=== PATIENT | female | born 1965 | race Caucasian/White ===

== ENCOUNTER 2020-03-07 05:20 | Day surgery (SDC) ==
--- NOTE | 2020-03-07 05:56 | EKG Report ---
Test Performed on : 03/07/2020 05:44:58 AM Test Reason : preop Blood Pressure : / mmHG Vent. Rate : 077 BPM Atrial Rate : 077 BPM P-R Int : 142 ms QRS Dur : 082 ms QT Int : 394 ms P-R-T Axes : 038 022 033 degrees QTc Int : 445 ms Normal sinus rhythm. Possible Left atrial enlargement Borderline ECG No previous ECGs available Confirmed by Tello AKHTAR, Magdiel Ruiz ([id number]) on 03/07/2020 4:48:21 PM
[2020-03-07] MEDS ORDERED: MARCAINE 0.25% PF/EPI 1:200,000 ONE (05:57)
[2020-03-07] MEDS ORDERED: VALIUM ONE (05:59)
[2020-03-07] MEDS ORDERED: KEFZOL 1 GM/D5W 1 GM/50 ML IVPB ONE (05:59)
[2020-03-07] MEDS ORDERED: LR 1,000 ML ONE (05:59)
[2020-03-07 06:08] LABS: HEMATOCRIT 35.9 % (37.0-47.0); HEMOGLOBIN 12.2 g/dL (12.0-16.0); MCH 28.2 PG (27-31); MCV 83.1 FL (81-99); MPV 11.2 FL (7.4-10.4); RBC 4.32 XMIL (4.2-5.4); RDW 13.6 % (11.5-14.5); WBC 6.56 X1000 (4.8-10.8)
[2020-03-07] MEDS ORDERED: VERSED ONE (06:30)
[2020-03-07] MEDS ORDERED: DIPRIVAN 1% ONE (06:30)
[2020-03-07] MEDS ORDERED: QUELICIN (DOSE) ONE (06:30)
[2020-03-07] MEDS ORDERED: ZEMURON ONE (06:30)
[2020-03-07] MEDS ORDERED: XYLOCAINE-MPF 2% ONE (06:30)
[2020-03-07 06:40] LABS: AGAP 15; BUN 17 mg/dL (8-22); CALCIUM 8.7 mg/dL (8.8-10.2); CHLORIDE 106 mmol/L (98-107); COSMO 284; CREATININE 0.6 mg/dL (0.5-0.9); ESTIMATED GFR > 60; GLUCOSE 121 mg/dL (70-104); POTASSIUM 3.3 mmol/L (3.5-5.1); SODIUM 141 mmol/L (136-145); TCO2 20 mmol/L (25-35)
[2020-03-07] MEDS ORDERED: ZOFRAN ONE (07:20)
[2020-03-07] MEDS ORDERED: DECADRON ONE (07:20)
[2020-03-07] MEDS ORDERED: ROBINUL ONE (08:04)
[2020-03-07] MEDS ORDERED: NEOSTIGMINE ONE (08:04)
[2020-03-07] MEDS ORDERED: EPHEDRINE ONE (08:08)
--- NOTE | 2020-03-07 08:55 | OPERATIVE NOTE ---
PROCEDURE DATE: 03/07/2020 PROCEDURE PERFORMED: Total thyroidectomy. SURGEON: Steve Guerra M.D. FUEL OIL CLERK: Dr. Hawthorne, who assisted in the exposure, dissection, removal, and closure of the procedure. PREOPERATIVE DIAGNOSIS: Graves' disease that is untreated. POSTOPERATIVE DIAGNOSIS: Graves' disease that is untreated. INDICATION: This is a 54-year-old with Graves' disease. She is unable to take any thyroid medication. She was turned down for radioactive iodine therapy, so we are doing a total thyroidectomy to control her disease, and doing it urgently since we cannot control her otherwise, except beta blockade. DESCRIPTION OF PROCEDURE: Satisfactory general endotracheal anesthesia was achieved. The patient was placed in a gentle reverse Trendelenburg position. The neck was gently extended, prepped, and draped in a sterile fashion. We marked the lowest skin line, 5 cm on each side of the midline, a fingerbreadth above the clavicle. We marked the skin, and anesthetized it with 0.25 Marcaine with epinephrine. We then incised the skin, and carried our incision through the platysma. We raised a subplatysmal plane superiorly to the thyroid prominence and inferior to the sternal notch. Gelpi retractors were placed. We divided the cervical fascia in the midline, dissected down to the isthmus of the thyroid. We dissected the right side first. Placed our Army-Rumsey retractors, and then isolated the superior pole, clamped, used the LigaSure to divide the vessels. We then left the Marixa clamp on the superior poles to retract it medially. We then identified the trachea inferiorly, rolled the gland anteriorly and medially, and then dissected close to the gland as we went from anterior to lateral to posterior. We identified the recurrent nerve and protected it. We felt that the superior parathyroid was identified and protected. The inferior parathyroid was not identified for certain. We stayed very close to the gland as we dissected, until we rolled the gland off the trachea. We then did a similar procedure on the left side. Again, the recurrent nerve was identified and protected. The parathyroids were not definitely identified, but we stayed so close to the gland that we felt that they were protected. We then finally amputated the gland. Hemostasis was acceptable. We did irrigate out both thyroid lobe fossae, but we did use powdered Rosa as the hemostatic agent in both sides of the trachea. Hemostasis did appear acceptable though. We placed a Kel drain, bringing it out inferiorly into the left of the midline, placing it into the thyroid lobe fossae. We secured the drain at the skin level with a 2-0 silk. We then closed the cervical fascia with 3-0 Polysorb simple stitches. We closed the platysma with 3-0 Polysorb simple stitches. Once again, injected with 0.25 Marcaine with epinephrine, and closed the skin with a 4-0 Polysorb subcuticular stitch. Telfa and a sterile OpSite were applied. She tolerated it well, and was sent to the recovery room in satisfactory condition. cc: Steve Guerra MD
[2020-03-07] MEDS: DILAUDID ONE ×2 (08:59→09:08)
[2020-03-07] MEDS ORDERED: NORCO-10 ONE (09:14)
[2020-03-07] MEDS ORDERED: LR 1,000 ML IV SCH (09:43)
[2020-03-07] MEDS ORDERED: DILAUDID IV PRN (09:43)
--- NOTE | 2020-03-07 15:44 | GENERAL SURGERY PROGRESS NOTE ---
DATE: 03/07/2020 TIME OF VISIT: 3:20 p.m. SUMMARY OF VISIT: Ms. Norris is postop total thyroidectomy. This morning she is doing well. She is not hoarse. [place] sign is negative. She has no complaints. Pain relief is adequate. Her drain is really not draining much. She has no significant swelling. PLAN: The plan will be to check her labs in the morning. cc: Steve Guerra MD
[2020-03-07] MEDS: NORCO-10 PO PRN ×2 (16:18→20:32)
[2020-03-07] MEDS ORDERED: HYZAAR 100/12.5 MG TAB PO SCH (21:00)
[2020-03-07] MEDS ORDERED: MOBIC PO SCH (21:00)
[2020-03-07] MEDS ORDERED: MAG-OX PO SCH (21:00)
[2020-03-07] MEDS ORDERED: NORETHINDRONE ACETATE PO SCH (21:00)
[2020-03-07] MEDS ORDERED: PAXIL PO SCH (21:00)
[2020-03-08] MEDS: NORCO-10 PO PRN ×2 (00:53→05:13)
[2020-03-08 05:57] LABS: HEMATOCRIT 35.2 % (37.0-47.0); HEMOGLOBIN 11.6 g/dL (12.0-16.0); LYMPH# 0.79 X1000 (1.2-3.4); LYMPH% 10.8 % (20.5-51.1); MCH 27.6 PG (27-31); MCV 83.6 FL (81-99); MONO# 0.39 X1000 (0.11-0.59); MONO% 5.3 % (1.7-9.3); NEUT# 6.15 X1000 (1.4-6.5); NEUT% 83.9 % (42.2-75.2); PLT 240 X1000 (130-400); RBC 4.21 XMIL (4.2-5.4); RDW 13.7 % (11.5-14.5); WBC 7.33 X1000 (4.8-10.8)
[2020-03-08 06:36] LABS: AGAP 13; BUN 9 mg/dL (8-22); CALCIUM 8.7 mg/dL (8.8-10.2); CHLORIDE 103 mmol/L (98-107); COSMO 279; CREATININE 0.5 mg/dL (0.5-0.9); ESTIMATED GFR > 60; GLUCOSE 144 mg/dL (70-104); POTASSIUM 3.3 mmol/L (3.5-5.1); SODIUM 139 mmol/L (136-145); TCO2 23 mmol/L (25-35)
[2020-03-08 07:31] VITALS: BP 130/63
--- NOTE | 2020-03-08 08:10 | GENERAL SURGERY PROGRESS NOTE ---
DATE: 03/08/2020 She is postop day 1 after a total thyroidectomy. She is doing generally well. She has minimal hoarseness. Chvostek sign is negative. Her calcium is unchanged, postop is still 8.7. PLAN: The plan is to remove her drain as her neck is not swollen. We will discharge her today on levothyroxine 100 mcg daily. We discussed the symptoms of hypocalcemia and to take a Tums if she experiences any. She will return to see me in the office in a week. Wound care was discussed. cc: Steve Guerra MD
[2020-03-08] MEDS ORDERED: PERIDEX MT SCH (09:00)
[2020-03-09] MEDS ORDERED: SYNTHROID PO SCH (07:00)
== END 2020-03-08 08:51 | disposition other institution (70) ==
LOC: 4N 05:20 → OR 05:20
PROVIDERS: ATTEND Surgery
PROC: GE.THYR (2020-03-07 06:54)